=== PATIENT | female | born 1970 | race Caucasian/White ===

== ENCOUNTER 2017-04-01 06:06 | Inpatient (IN) | payer BC, MEDICARE, OTHER ==
--- NOTE | ~2017-04-01 | EGD ---
EGD REPORT [facility] [address] [address] NAME: PONCHO WATTS : 70 STATUS : ADM IN PAT#: [id number] AGE: 46 ADM/REG DATE : 04/01/17 MR#: [id number] REPORT SERV DATE: 04/03/17 DICTATED BY: MARVEL PELLETIER DATE: 04/03/17 REPORT STATUS : Draft TRANSCRIBED BY: [facility] DATE: 04/03/17 Pulmonology Patient Name: Poncho Watts Procedure Date: 04/03/2017 4:04 PM Date of : 1970 Attending MD: ALBAN PELLETIER MD Procedure Date No Time: 04/03/2017 Procedure: Bronchoscopy Indications: Left hemithorax opacification Providers: ALBAN PELLETIER MD Referring MD: SONIYA FIGUEROA MD Medicines: Lidocaine 2% 20 mL Complications: No immediate complications Procedure: Pre-Anesthesia Assessment: - A History and Physical has been performed. Patient meds and allergies have been reviewed. The risks and benefits of the procedure and the sedation options and risks were discussed with the patient. All questions were answered and informed consent was obtained. Patient identification and proposed procedure were verified prior to the procedure by the physician and the nurse in the pre-procedure area in the procedure room. Mental Status Examination: alert and oriented. Airway Examination: normal oropharyngeal airway. Respiratory Examination: decreased breathe sounds at left base, but otherwise clear. CV Examination: normal and RRR, no murmurs, no S3 or S4. ASA Grade Assessment: III - A patient with severe systemic disease. After reviewing the risks and benefits, the patient was deemed in satisfactory condition to undergo the procedure. The anesthesia plan was to use general anesthesia. Immediately prior to administration of medications, the patient was re-assessed for adequacy to receive sedatives. The heart rate, respiratory rate, oxygen saturations, blood pressure, adequacy of pulmonary ventilation, and response to care were monitored throughout the procedure. The physical status of the patient was re-assessed after the procedure. After obtaining informed consent, the BF [id number] was introduced through the mouth, via laryngeal mask airway and advanced to the tracheobronchial tree. The procedure was accomplished without difficulty. The patient tolerated the procedure well. Findings: The laryngeal mask airway is in normal position. The vocal cords move normally with breathing. The subglottic space is normal. The trachea is EGD REPORT [address] [address] NAME: PONCHO WATTS : [birth year] STATUS : ADM IN [facility]#: [id number] AGE: 46 ADM/REG DATE : 04/01/17 MR#: [id number] REPORT SERV DATE: 04/03/17 DICTATED BY: MARVEL PELLETIER DATE: 04/03/17 REPORT STATUS : Draft TRANSCRIBED BY: [employer] DATE: 04/03/17 of normal caliber. The barrera is sharp. The tracheobronchial tree was examined to at least the first subsegmental level. Bronchial mucosa and anatomy are normal; there are no endobronchial lesions. There was a small LLL mucus plug. Therapeutic aspiration was performed. Bronchoalveolar lavage was performed in the left lower lobe of the lung and sent for cell count, cytology, bacterial culture, viral smears \T\ culture, and fungal and AFB analysis. 180 mL of fluid were instilled. 20 mL were returned. The return was cellular. Impression: - Therapeutic aspiration was performed. - Bronchoalveolar lavage was performed. Recommendation: - Await test results. - Chest X-ray. Attending Participation: I personally performed the entire procedure. ALBAN PELLETIER MD 04/03/2017 4:58 PM This report has been signed electronically. Number of Addenda: 0 Note Initiated On: 04/03/2017 4:04 PM [address] [id number]
--- NOTE | ~2017-04-01 | HP ---
History And Physical [place] [address] [place]. [address] NAME: PONCHO WATTS : [birth year] STATUS : ADM IN [facility]#: [id number] AGE: 46 ADM/REG DATE : 04/01/17 MR#: [id number] REPORT SERV DATE: 04/01/17 DICTATED BY: JACQUELYN STRICKLAND DATE: 04/01/17 REPORT STATUS : Draft TRANSCRIBED BY: [employer] DATE: 04/01/17 DATE OF ADMISSION: 04/01/2017 CHIEF COMPLAINT: Congestion, coughing. HISTORY OF PRESENT ILLNESS: The patient is a very pleasant 46-year-old white female. She has a history of mental retardation, and spina bifida. She has pretty significant physical disability. She is only able to use her left arm. Uses a motorized wheelchair. She does feed herself, but she does not walk or ambulate. She has had a history of wounds on her sacrum and buttocks secondary to sitting in a chair all day. 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 She did not have any documented fevers per the special services supervisor and family. She did not have any diarrhea. No nausea, vomiting. No abdominal pain. She did not complain of any chest pain. There was some concern that she had a mouth droop; however, upon arrival to the ER this was not noted by the ER physician, the nurses, or myself. Mostly, she has had rhonchorous breath sounds and is appeared to be short of breath. She did receive a flu shot this year. She has had pneumonia in the past. She has a CLOCK AND WATCH ASSEMBLER shunt present. PAST MEDICAL HISTORY: 1. Spina bifida with subsequent hydrocephalus, multiple surgeries including CLOCK AND WATCH ASSEMBLER shunt. 2. Nephrotic syndrome. 3. CKD. 4. Acne. 5. Anemia. 6. Turner esophagus. 7. Allergies. 8. Gastritis. 9. GERD. 10.History UTIs. 11.Erosive esophagitis. 12.Hiatal hernia. 13.Insulin resistance. 14.Neurogenic bladder. 15.Obesity. 16.Osteoporosis. 17.EMILY, on CPAP, but no oxygen. 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 19.Seizure disorder. SOCIAL HISTORY: Nondrinker, nonsmoker. She lives in a [facility] with [employer]. Her father is present at bedside. She has a court-appointed guardian. FAMILY HISTORY: Positive for hypertension and also stroke. ALLERGIES: CONTRAST DYE, VANCOMYCIN, RED DYE, AND WATERMELON. [address] And [address]. [address] NAME: PONCHO WATTS : [birth year] STATUS : ADM IN [facility]#: [id number] AGE: 46 ADM/REG DATE : 04/01/17 MR#: [id number] REPORT SERV DATE: 04/01/17 DICTATED BY: JACQUELYN STRICKLAND DATE: 04/01/17 REPORT STATUS : Draft TRANSCRIBED BY: STEWART DATE: 04/01/17 PAST SURGICAL HISTORY: She has had a annie placed in her back, multiple surgeries for a CLOCK AND WATCH ASSEMBLER shunt, spina bifida, and a hip surgery on the right. HOME MEDICATIONS: Reviewed and attached. REVIEW OF SYSTEMS: Full 10-point review of systems obtained. Pertinent positives are mentioned in the HPI. PHYSICAL EXAMINATION: VITAL SIGNS: She is currently 98% on 2 L, BP is 121/73, temperature 97.2, pulse 88, respiratory rate in the 20s. HEENT: Normocephalic, atraumatic. NECK: Supple. HEART: Regular rate and rhythm. LUNGS: She has rhonchorous breath sounds throughout. ABDOMEN: Soft, nontender, nondistended. EXTREMITIES: Warm and dry. She has 2+ pitting edema at the feet. Her backside is examined and she did have any open sores. NEURO: She is alert. She answers simple questions easily. She moves her left arm normally. I do not see any facial droop. Her speech appears to be normal for her. LABORATORY AND X-RAY: White count 11.8, H and H 12.9 and 38.6, platelets are 217. Coags are normal. Lactate is 0.8. BNP is 27. Brain CT shows her shunt in placed. No acute infarct or bleed. Chest x-ray is clear. Procalcitonin is less than 0.05. Sodium 134, potassium 4.9, chloride 100, CO2 of 26, BUN creatinine 19 and 0.55, glucose is 85. Troponin is 0.02. Mag is 1.9. ASSESSMENT/PLAN: 1. Cough with shortness of breath and decreased and some component of hypoxemic respiratory failure likely secondary to ongoing pulmonary infection, although no obvious pneumonia on x-ray, she does have a white count. She has had a significant cough with rhonchorous breath sounds and sputum. I think this is the etiology of her change. I would recommend covering her for pneumonia. We will cover her with azithromycin and Rocephin. We will culture blood and sputum. Place her on some nebs as well as O2. We will suction her p.r.n. Turn her frequently and hopefully she will improve. 2. Question of altered mental status and facial droop. I do not appreciate a facial droop. None of the staff here appreciated anything on exam. Her CT is negative. I do not think she can have an MRI because of the shunt that she has in place that was placed in the 80s. We will simply watch her clinically. Her only real risk factor was for stroke was being on oral contraceptive in the past. I am trying to confirm now if she is taking any longer. 3. History of hypertension. She is on losartan, likely continue this. 4. History of chronic kidney disease, nephrotic syndrome, this could probably explain her lower extremity edema. 5. History of seizure disorder. Continue Tegretol and Depakote. 6. Spina bifida with resultant mental retardation and significant physical disabilities. History And Physical [address] [address] NAME: PONCHO WATTS : 70 STATUS : ADM IN [facility]#: [id number] AGE: 46 ADM/REG DATE : 04/01/17 MR#: [id number] REPORT SERV DATE: 04/01/17 DICTATED BY: JACQUELYN STRICKLAND DATE: 04/01/17 REPORT STATUS : Draft TRANSCRIBED BY: STEWART DATE: 04/01/17 7. Deep venous thrombosis prophylaxis, subcutaneous Lovenox. 8. History of stage IV decubitus ulcer and osteomyelitis of the left ischium. 9. Disposition pending above aforementioned plan and workup. STEFANY/STEWART Jacquelyn Strickland M.D. / [id number] CC: Jenn Cisneros D.O.
--- NOTE | ~2017-04-01 | CN ---
Consultation Report [facility] [address] [place]. [address] NAME: PONCHO WATTS : 70 STATUS : ADM IN [facility]#: [id number] AGE: 46 ADM/REG DATE : 04/01/17 MR#: [id number] REPORT SERV DATE: 04/02/17 DICTATED BY: DATE: REPORT STATUS : Draft TRANSCRIBED BY: MODL DATE: 04/02/17 NEUROLOGY CONSULTATION DATE OF CONSULTATION: 04/02/2017 REASON FOR CONSULT: Encephalopathy, concern for LEAD QA ANALYST shunt malfunction. HISTORY OF PRESENT ILLNESS: This is a 46-year-old female presented to [place] on 04/01/2017 secondary to apparent lethargy as well as decreased responsiveness. The patient usually is able to move left upper extremity. Also, the patient was noted to have bilateral paraplegia with the patient is mostly bed and wheelchair bound. The patient was noted to have lethargy on the morning of 04/01/2017. As a result, the patient was sent over from the living facility. The patient prior to hospitalization was not noted to have any fever or chill, but was noted to have an increased secretion as well as coughing and shortness of breath. The patient has not had any recent changes in medication. After hospital admission on the morning of 04/02/2017 the patient was noted to have febrile episodes, however, the patient's mental status today appeared to have improved. The patient was started on antibiotics since the hospital admission. PAST MEDICAL HISTORY: Significant for spina bifida as well as hydrocephalus with the patient noted to have a LEAD QA ANALYST shunt placement. The patient has had nephrotic syndrome, as well as chronic kidney disease, as well as a history of bilateral paraplegia; history of Turner's esophagus, anemia, gastritis, and gastroesophageal reflux disease; prior history of urinary tract infection as well as a history of neurogenic bladder, optic nerve atrophy, history of seizure disorder. It is unclear whether or not she is seen by any neurologist for seizure. FAMILY HISTORY: The patient was noted to have family history significant for hypertension as well as stroke. SOCIAL HISTORY: The patient was noted to have no tobacco, alcohol, or recreational drug usage. The patient lives in a prison. ALLERGIES: THE PATIENT NOTED TO HAVE ALLERGY TO CONTRAST DYE, VANCOMYCIN, RED DYE, WELL WATERMELON. MEDICATIONS: The patient's home medication, takes Tegretol as well as Depakote. Other home medication was reviewed. REVIEW OF SYSTEMS: Otherwise negative except for those mentioned in the HPI. PHYSICAL EXAMINATION: VITAL SIGNS: At the time of evaluation, the patient was noted to have vital signs with T-max was 100.6, heart rate of 73 to 102, respirations of 16 to 22, and blood pressure of 120 to Consultation Report [place] [id number] [facility] [place]. [address] NAME: PONCHO WATTS : 70 STATUS : ADM IN [facility]#: [id number] AGE: 46 ADM/REG DATE : 04/01/17 MR#: [id number] REPORT SERV DATE: 04/02/17 DICTATED BY: DATE: REPORT STATUS : Draft TRANSCRIBED BY: MODL DATE: 04/02/17 144 over 57 to 67. GENERAL: The patient is well developed, well nourished, in no acute distress. CARDIOVASCULAR: Tachycardic. No carotid bruits were auscultated. PULMONARY: Noted to have diffuse rhonchi at the time of evaluation. NEUROLOGIC EXAMINATION: The patient was noted to have neurological examination generally the patient is alert, oriented to self. The patient does not appear to be well oriented regarding place as well as year or month. The patient is able to follow some simple commands, otherwise with visual cues. Dysarthria was noted at the time of evaluation which appeared to be baseline. The patient is able to answer routine questions appropriately. Cranial nerves II through XII, pupils equal, round, and reactive to light. Horizontal eye movement was noted to stimulation. Blink to threat response was noted. Microcephaly was appreciated at time of evaluation. The patient was otherwise noted to have symmetrical facial expression and midline tongue. Apparent normal movement with the patient noted to have mild decreased hearing in bilateral ears. The patient does have increased muscle tone in the right upper extremity with the patient had difficulty moving the right upper extremity which according to family member has been baseline. The patient is able to move the left upper extremity against gravity. Unable to move bilateral lower extremity. The patient does have a 3+ reflexes bilaterally in upper and lower extremities at the time of evaluation. Cerebellar examination was not evaluated due to the patient's difficulty following complex commands with the gait not evaluated as the patient is normally wheelchair and bed bound. LABORATORY STUDIES: At the time of evaluation demonstrated a white blood cell count of 9.1, hemoglobin of 9.6, hematocrit of 29.2, and platelet count of 194. Chemistry panel, sodium 142, potassium 4.0, chloride 108, bicarb 26, BUN of 19, creatinine of 0.46 glucose of 116, calcium of 9.1. Serum Tegretol of 13.1 and Depakote level of 52.8 with procalcitonin level of less than 0.05. CT scan of the brain was reviewed. LEAD QA ANALYST shunt was in place and concern for possible mild ventriculomegaly compared to prior CT scan, otherwise no significant mass effect was noted at the time of evaluation previous left MCA distribution stroke with associated encephalomalacia was seen. IMPRESSION: Encephalopathy. With the patient's family reports improvement in confusion, concern for possible pneumonia and systemic illness related to encephalopathy. Continue antibiotic as per Pulmonary as well as hospitalist management, less likely secondary to LEAD QA ANALYST shunt malfunction, but we will have outpatient Neurosurgery followup for LEAD QA ANALYST shunt management. RECOMMENDATION: 1. Continue Tegretol and Depakote. 2. Antibiotics as per hospitalist and motor driver. 3. Serum TSH and free T4, vitamin B12, folate, ammonia level with morning labs. 4. Outpatient Neurosurgery followup. Consultation Report [address] [place]. [address] NAME: PONCHO WATTS : 70 STATUS : ADM IN [facility]#: [id number] AGE: 46 ADM/REG DATE : 04/01/17 MR#: [id number] REPORT SERV DATE: 04/02/17 DICTATED BY: DATE: REPORT STATUS : Draft TRANSCRIBED BY: STEWART DATE: 04/02/17 [facility]/STEWART Alex Poon MD / [id number] CC: Jenn Cisneros M.D.
--- NOTE | ~2017-04-01 | DS ---
Discharge Summary [facility] [address] [place]. [address] NAME: PONCHO WATTS : 70 STATUS : DIS IN PAT#: [id number] AGE: 46 ADM/REG DATE : 04/01/17 MR#: [id number] REPORT SERV DATE: 04/06/17 DICTATED BY: BJORN OSPINA DATE: 04/06/17 REPORT STATUS : Draft TRANSCRIBED BY: MODL DATE: 04/06/17 ADMISSION DATE: 04/01/2017 DISCHARGE DATE: 04/06/2017 DISCHARGE DIAGNOSES: 1. Hypoxic respiratory failure, mucous plugs, status post bronchoscopy on 04/03/2017. 2. Left pneumonia. 3. Acute encephalopathy, metabolic, resolved. 4. Obstructive sleep apnea, on constant positive airway pressure therapy. 5. , resolving, most recent 146. 6. Chronic stage IV sacral pressure ulcer, present on admission. 7. History of mental retardation and spina bifida. 8. History of hypertension. HISTORY OF PRESENT ILLNESS: This is a pleasant 46-year-old white female who presented with congestion and coughing. Please see initial H and P of Dr. Sydni Strickland. The patient was admitted to the Hospitalist Service for further evaluation and treatment. She was started on empiric antibiotic therapy. Lab work was ordered and followed. Cultures were obtained. CONSULTANTS DURING THIS ADMISSION: 1. Neurology, Dr. Lorena Poon. 2. Pulmonology; MICHAELA Breaux, and Dr. Cony Connor. PROCEDURES AND IMAGING DURING THIS ADMISSION: Initial CT scan of the brain showing prior GLASS CUT OFF TENDER shunt in place. No evidence of any acute infarct or bleed. 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 A mild increase in the prominence of the lateral ventricles on today's exam. A bronchoscopy that was performed as stated on 04/03/2017 where therapeutic aspiration was performed and bronchioalveolar lavage. HOSPITAL COURSE: The patient was continued on her IV antibiotics, bronchodilator therapy, and oxygen. Her mental status began to improve as Neurology saw the patient. Pulmonary saw the patient, and after discussion with the family and hospitalist, decided to pursue the above-described bronchoscopy, which was performed and she underwent this and recovered well afterwards. Her symptoms slowly began to resolve, her oxygen was able to be weaned, her chest x-rays improved, she continued using her CPAP therapy. Speech Therapy also saw the patient and did not recommend any further swallow evaluation as she had no overt signs of aspiration. She completed her antibiotic course on 04/05/2017, and was felt safe for [facility], given her overall symptomatic improvement. DISCHARGE MEDICINES: Aspirin 81 mg daily, Tegretol 300 mg twice a day and 200 mg at noon, [place] and vitamin D 500 mg twice a day, multivitamin tablet one daily, Depakote ER 1500 mg in the evening, Zantac 300 mg at bedtime, Flonase nasal spray p.r.n. to each naris, María 180 mg daily, losartan 100 mg daily, Reglan 10 mg before meals, Prilosec 40 mg daily, MiraLAX one packet daily, sodium bicarbonate 650 mg twice a day, Fosamax 70 mg every seven days, cranberry extract daily, miconazole 2% ointment applied twice a day p.r.n. for abdominal folds, Tri-Previfem tablet, and saline nasal spray p.r.n. Discharge Summary [address] [address] NAME: PONCHO WATTS : 70 STATUS : DIS IN PAT#: [id number] AGE: 46 ADM/REG DATE : 04/01/17 MR#: [id number] REPORT SERV DATE: 04/06/17 DICTATED BY: BJORN OSPINA DATE: 04/06/17 REPORT STATUS : Draft TRANSCRIBED BY: STEWART DATE: 04/06/17 [facility]/STEWART Bjorn Ospina NP / [id number] CC: Jenn Cisneros M.D.
--- NOTE | ~2017-04-01 | DS ---
Discharge Summary [place] [id number] [facility] [place]. [address] NAME: PONCHO WATTS : 70 STATUS : DIS IN PAT#: [id number] AGE: 46 ADM/REG DATE : 04/01/17 MR#: [id number] REPORT SERV DATE: 04/06/17 DICTATED BY: BJORN OSPINA DATE: 04/06/17 REPORT STATUS : Draft TRANSCRIBED BY: MODL DATE: 04/06/17 ADMISSION DATE: 04/01/2017 DISCHARGE DATE: 04/06/2017 NO DICTATION [facility]/STEWART Bjorn Ospina NP / [id number] CC: Jenn Cisneros M.D.
--- NOTE | ~2017-04-01 | CN ---
Consultation Report [facility] [address] [place]. [address] NAME: PONCHO WATTS : 70 STATUS : ADM IN PAT#: [id number] AGE: 46 ADM/REG DATE : 04/01/17 MR#: [id number] REPORT SERV DATE: 04/02/17 DICTATED BY: CHOLO DALE DATE: 04/02/17 REPORT STATUS : Draft TRANSCRIBED BY: MODL DATE: 04/02/17 CONSULT NOTE DATE OF CONSULTATION: 04/02/2017 CHIEF COMPLAINT: Worsening hypoxemia in a patient with an opacified left hemithorax. HISTORY OF PRESENT ILLNESS: Mrs. Poncho Watts is a 46-year-old white female with a past medical history significant for spina bifida, mental retardation, and epilepsy, who presents to [facility] Emergency Room with complaints of difficulty breathing. It should be noted that Mrs. Watts has not been hospitalized recently and has done fairly well in the facility in which she currently resides up until recently. Mrs. Watts is not currently followed by a maintenance shop technician. She is not usually on supplemental oxygen. She takes no breathing medications. She does have known obstructive sleep apnea, compliant with CPAP therapy. She denies previous smoking history. She is unable to quantify her exercise tolerance today. As previously mentioned, Mrs. Watts does have a degree of mental retardation and much of the following information was garnered from her as well as her mother, who I spoke with on the phone. Again, the patient does have known spina bifida and mental retardation and stays at [facility]. By report she had worsening chest congestion and cough as well as some associated lethargy. This eventually prompted her presentation to [facility] Emergency Room. Upon arrival, she was found to have a systolic blood pressure of 172, she was afebrile at this time. She had an oxygen saturation of 93% on 4 L. Initial blood work revealed a white blood cell count of 11,800. Creatinine was 0.5. Chest x-ray was not impressive as her initial presentation. Because of her change in mental status, she did undergo a CT of the brain, which did not demonstrate any acute infarct or bleed. She does have a known shunt noted on this scan. The patient was placed on community-acquired antibiotic coverage. She did have a followup chest x-ray today, which revealed opacification of the left chest. For the aforementioned reasons, she has been referred to the Pulmonary Service for further assessment. Currently, Mrs. Watts is awake and alert. She answers questions. Her caregiver is currently at bedside. She is demonstrating a strong productive cough. She denies any pain in her chest or coughing up any blood. The patient currently denies any murmurs, angina, or palpitations. She does have some mild edema. In regard to constitutional symptoms, she has had fever. She currently denies any nausea, vomiting, or abdominal pain. PAST MEDICAL HISTORY: Consultation Report [address] [id number] NAME: PONCHO WATTS : 70 STATUS : ADM IN [facility]#: [id number] AGE: 46 ADM/REG DATE : 04/01/17 MR#: [id number] REPORT SERV DATE: 04/02/17 DICTATED BY: CHOLO DALE DATE: 04/02/17 REPORT STATUS : Draft TRANSCRIBED BY: STEWART DATE: 04/02/17 1. Spina bifida. 2. Nephrotic syndrome. 3. Anemia. 4. Turner's esophagus. 5. Gastroesophageal reflux disease. 6. Hiatal hernia. 7. Obesity. 8. Obstructive sleep apnea, on CPAP. 9. Seizure disorder. PAST SURGICAL HISTORY: DUMPER [employer]ER shunt placement. FAMILY HISTORY: There is no family history of lung disease. SOCIAL HISTORY: The patient is not . She has no children. She does reside at the care facility. TOBACCO/ALCOHOL: As previously mentioned, the patient describes herself as a never smoker. MEDICATIONS: Alendronate 70 mg, Tegretol 100 mg, carbamazepine 100 mg, Depakote 500 mg, fexofenadine 180 mg, losartan 100 mg, Reglan 10 mg, omeprazole 40 mg, ranitidine 300 mg. ALLERGIES: THE PATIENT HAS KNOWN ALLERGIES TO CONTRAST, VANCOMYCIN, AND RED DYE. REVIEW OF SYSTEMS: Complete review of systems was performed with the pertinent positives and negatives contained within the body of the HPI. PHYSICAL EXAMINATION: VITAL SIGNS: Blood pressure is 124/68, heart rate 86, T-max is 100.6, respiratory rate is 16, SpO2 is 88% on 2 L nasal cannula. GENERAL: Mrs Poncho Watts is a 46-year-old developmentally disabled white female, who is not currently exhibiting any signs of acute distress. SKIN: Skin with appropriate texture and turgor. No rashes, lesions, or ulcers. She does have report of wounds on her buttocks. HEENT: Head, skull is normocephalic, atraumatic. Facies are symmetric. Eyes, sclerae anicteric. Ears, auricles and tragus without pain to palpation. There is pitting noting at above the right auricle. Nose, bilateral nasal patency. Throat, Mallampati class 3 to 4. NECK: Redundant tissue noted. No lymphadenopathy. THORAX/LUNGS: Absent breath sounds on the left. Coarse rhonchi through the remaining lung snow. CARDIOVASCULAR: Regular rate and rhythm. ABDOMEN: Soft. PERIPHERAL VASCULAR: Very mild nonpitting edema. MUSCULOSKELETAL: Small hands. Consultation Report [address] [place]. [address] NAME: PONCHO WATTS : 70 STATUS : ADM IN [facility]#: [id number] AGE: 46 ADM/REG DATE : 04/01/17 MR#: [id number] REPORT SERV DATE: 04/02/17 DICTATED BY: CHOLO DALE DATE: 04/02/17 REPORT STATUS : Draft TRANSCRIBED BY: STEWART DATE: 04/02/17 NEUROLOGIC: Good muscle bulk and tone bilaterally. Strength not assessed. PSYCHIATRIC: The patient has limited cognitive ability. ACCESSORY DATA: Reveals a white blood cell count of 9100, hemoglobin and hematocrit is 9.6 and 29.3. Procalcitonin is 0.05. Glucose is 116. Chest x-ray reveals opacification of the left hemithorax. IMPRESSION: 1. Acute hypoxemic respiratory failure. 2. Opacified left hemithorax. 3. Pneumonia-possible aspiration component. 4. Obstructive sleep apnea with CPAP compliance. 5. Dysphagia. PLAN: 1. At this time, the patient's family wishes her to be a full code. We will place her on supplemental oxygen and titrate as appropriate. 2. In regard to the patient's opacified left hemithorax, we will try to maximize her pulmonary toilet with the understanding that she will have difficulty participating. She will likely require therapeutic bronchoscopy for her mucous plugging. We have discussed this with the family and they are willing to proceed if our conservative treatments do not resolve her opacified left hemithorax. 3. In regard to the patient's pneumonia, she is on community-acquired coverage with improvement in her white count. She does also have a negative procalcitonin. We would have a low threshold to increase to full HCAP coverage, although her allergy to vancomycin has been noted. We will follow her closely with further recommendations. 4. In regard to the patient's obstructive sleep apnea, the family is apparently bringing her home unit in for use at her for sleep. 5. The patient does have some reports of difficulty swallowing. We will check a swallow evaluation prior to her discharge home. The aforementioned impression and plan has been discussed with Dr. Connor, who will follow further recommendations. We thank you for this consult and look forward to participating in the care of Mrs. Poncho Watts. GBS/MODL Cholo Dale PA-C / [id number] Consultation Report [address] [address] NAME: PONCHO WATTS : 70 STATUS : ADM IN PAT#: [id number] AGE: 46 ADM/REG DATE : 04/01/17 MR#: [id number] REPORT SERV DATE: 04/02/17 DICTATED BY: CHOLO DALE DATE: 04/02/17 REPORT STATUS : Draft TRANSCRIBED BY: STEWART DATE: 04/02/17 CC: Jenn Cisneros M.D.
[~2017-04-01 06:06] MED LIST: 8 HOUR650 MG PO; ALLEGRA180 PO; ASAB PO; BENZOYL PEROXIDE TOP; COZAAR100 MG PO; CRANBERRY PO; CRANBERRY1 TAB PO; DEPAKOTEER PO; FLONASE NAS; FOSAMAX70 MG PO; MIRALAXPKT PO; MULTIPLE VIT PO; MULTIVITAMI1 PO; NASONEX NAS; OCEAN NAS; OS500+D PO; PRILOSEC40 MG PO; REG PO; SOD CHLORIDE1 G1 PO; SODBICAR10 PO; TEGRETOL100 MG PO; TRI-PREVIFEM PO; YASMIN 281 TAB PO; ZANTAC300 MG PO; ZITH250 PO
[2017-04-01 06:33] LABS: BASOPHILS 0.1 %; BASOPHILS ABSOLUTE 0.01 10/3/uL (0.0-0.16); EOSINOPHILS 0 %; HEMATOCRIT 38.6 % (36.0-48.0); HEMOGLOBIN 12.9 g/dL (12.0-16.0); IMMATURE GRANULOCYTES 0.2 %; IMMATURE GRANULOCYTES ABSOLUTE 0.02 10/3/uL (0.0-0.11); LYMPHOCYTES 6.8 %; MANUAL DIFF NO %; MEAN CORPUS HGB CONC 33.4 g/dL (32.0-36.0); MEAN CORPUSCULAR VOLUME 86.7 fL (80-100); MEAN PLATELET VOLUME 11.2 fL (9.2-13.0); MONOCYTES 10.3 %; MONOCYTES ABSOLUTE 1.21 10/3/uL (0.21-1.20); NEUTROPHILS 82.6 %; NEUTROPHILS ABSOLUTE 9.74 10/3/uL (2.02-8.40); PLATELET COUNT 217 10/3/uL (150-400); RBC DISTRIBUTION WIDTH 15.1 % (12.0-16.0); RED CELL COUNT 4.45 10/6/uL (4.0-5.6); WHITE BLOOD CELLS 11.8 10/3/uL (4.5-10.5)
[2017-04-01 06:45] LABS: PARTIAL THROMBO TIME 34.1 SEC (22.5-37.2); PROTIME (NOT ORD) 13.1 SEC (12.0-14.5)
[2017-04-01 06:52] LABS: BUN (BLOOD UREA NITROGEN) 19 MG/DL (6-23); CHEST PAIN PROFILE TAT 0 Hrs 25 Mins; CHLORIDE, SERUM 100 MMOL/L (96-112); CO2 (CARBON DIOXIDE) 26 MMOL/L (24-34); CREATININE 0.55 MG/DL (0.55-1.02); GFR AFRICAN AMERICAN 130 ML/MIN (>=60); GFR NON AFRICAN AMERICAN 112 ML/MIN (>=60); POTASSIUM, SERUM 4.9 MMOL/L (3.5-5.3); SODIUM, SERUM 134 MMOL/L (135-148); TROPONIN I <0.02 NG/ML (<0.05)
[2017-04-01 06:53] LABS: CALCIUM, SERUM 9.9 MG/DL (8.5-10.4); GLUCOSE, SERUM 85 MG/DL (60-99); LACTATE 0.8 MMOL/L (0.3-2.4)
[2017-04-01 07:35] LABS: PROCALCITONIN <0.05 ng/mL (<0.5)
[2017-04-01 08:28] LABS: TEGRETOL (CARBAMAZEPINE) 13.1 MCG/ML (4.0-10.0)
[2017-04-01 08:30] LABS: DEPAKENE (VALPROIC ACID) 52.8 MCG/ML (50.0-100.0)
[2017-04-01] MEDS ORDERED: FOSAMAX70 MG PO (08:42)
[2017-04-01] MEDS ORDERED: BENZOYL PEROXIDE TOP (08:42)
[2017-04-01] MEDS ORDERED: REG PO (08:43)
[2017-04-01] MEDS ORDERED: ALLEGRA180 PO (08:43)
[2017-04-01] MEDS ORDERED: COZAAR100 MG PO (08:44)
[2017-04-01] MEDS ORDERED: FLONASE NAS (08:44)
[2017-04-01] MEDS ORDERED: PRILOSEC40 MG PO (08:44)
[2017-04-01] MEDS ORDERED: OS500+D PO (08:45)
[2017-04-01] MEDS ORDERED: TEGRETOL100 MG PO ×2 (08:45→08:46)
[2017-04-01] MEDS ORDERED: SODBICAR10 PO (08:45)
[2017-04-01] MEDS ORDERED: CRANBERRY500 MG PO (08:47)
[2017-04-01] MEDS ORDERED: ASAB PO (08:47)
[2017-04-01] MEDS ORDERED: DEPAKOTEER PO (08:47)
[2017-04-01] MEDS ORDERED: CENTRUM PO (08:48)
[2017-04-01] MEDS ORDERED: ZANTAC300 MG PO (08:49)
[2017-04-01] MEDS ORDERED: MIRALAX POWDER1 PKT PO ×2 (08:52→08:59)
[2017-04-01] MEDS ORDERED: TRI-PREVIFEM PO (08:53)
[2017-04-01] MEDS ORDERED: MICONAZOLE 2% TOP (08:57)
[2017-04-01] MEDS ORDERED: OCEAN NAS (08:58)
[2017-04-01 16:56] LABS: INFLUENZA A SCREEN NEGATIVE (NEGATIVE); INFLUENZA B SCREEN NEGATIVE (NEGATIVE)
[2017-04-02 06:34] LABS: BASOPHILS 0.1 %; BASOPHILS ABSOLUTE 0.01 10/3/uL (0.0-0.16); EOSINOPHILS 0 %; IMMATURE GRANULOCYTES 0.1 %; IMMATURE GRANULOCYTES ABSOLUTE 0.01 10/3/uL (0.0-0.11); LYMPHOCYTES 13.7 %; LYMPHOCYTES ABSOLUTE 1.24 10/3/uL (0.67-4.30); MEAN CORPUS HGB CONC 32.9 g/dL (32.0-36.0); MEAN CORPUSCULAR HEMOGLOB 28.7 pg (26.0-34.0); MEAN CORPUSCULAR VOLUME 87.4 fL (80-100); MEAN PLATELET VOLUME 11.2 fL (9.2-13.0); MONOCYTES 8.5 %; MONOCYTES ABSOLUTE 0.77 10/3/uL (0.21-1.20); NEUTROPHILS 77.6 %; NEUTROPHILS ABSOLUTE 7.02 10/3/uL (2.02-8.40); PLATELET COUNT 194 10/3/uL (150-400); RBC DISTRIBUTION WIDTH 15.7 % (12.0-16.0); WHITE BLOOD CELLS 9.1 10/3/uL (4.5-10.5)
[2017-04-02 06:39] LABS: HEMATOCRIT 29.2 % (36.0-48.0); HEMOGLOBIN 9.6 g/dL (12.0-16.0); RED CELL COUNT 3.34 10/6/uL (4.0-5.6)
[2017-04-02 06:40] LABS: MANUAL DIFF NO %
[2017-04-02 06:47] LABS: BUN (BLOOD UREA NITROGEN) 19 MG/DL (6-23); CALCIUM, SERUM 9.1 MG/DL (8.5-10.4); CHLORIDE, SERUM 108 MMOL/L (96-112); CO2 (CARBON DIOXIDE) 26 MMOL/L (24-34); CREATININE 0.46 MG/DL (0.55-1.02); GFR AFRICAN AMERICAN 138 ML/MIN (>=60); GFR NON AFRICAN AMERICAN 119 ML/MIN (>=60); GLUCOSE, SERUM 116 MG/DL (60-99); SODIUM, SERUM 142 MMOL/L (135-148)
[2017-04-03 05:04] LABS: BASOPHILS 0.1 %; BASOPHILS ABSOLUTE 0.01 10/3/uL (0.0-0.16); EOSINOPHILS 0.1 %; EOSINOPHILS ABSOLUTE 0.01 10/3/uL (0.0-0.53); HEMATOCRIT 27.7 % (36.0-48.0); IMMATURE GRANULOCYTES 0.1 %; IMMATURE GRANULOCYTES ABSOLUTE 0.01 10/3/uL (0.0-0.11); LYMPHOCYTES 35.1 %; LYMPHOCYTES ABSOLUTE 2.46 10/3/uL (0.67-4.30); MEAN CORPUS HGB CONC 32.5 g/dL (32.0-36.0); MEAN CORPUSCULAR HEMOGLOB 28.7 pg (26.0-34.0); MEAN CORPUSCULAR VOLUME 88.2 fL (80-100); MEAN PLATELET VOLUME 11.1 fL (9.2-13.0); MONOCYTES ABSOLUTE 0.98 10/3/uL (0.21-1.20); NEUTROPHILS 50.6 %; NEUTROPHILS ABSOLUTE 3.53 10/3/uL (2.02-8.40); PLATELET COUNT 195 10/3/uL (150-400); RBC DISTRIBUTION WIDTH 16.2 % (12.0-16.0); RED CELL COUNT 3.14 10/6/uL (4.0-5.6)
[2017-04-03 05:08] LABS: MANUAL DIFF NO %
[2017-04-03 05:58] LABS: FREE T4 1.28 NG/DL (0.76-1.46)
[2017-04-03 05:59] LABS: FOLATE 26.1 NG/ML (>5.2); ULTRASENSITIVE TSH 3.06 MCIU/ML (0.358-3.740)
[2017-04-03 18:54] LABS: BD FL LYMPH (NOT ORD) 6 %; BD FL SOURCE (NOT ORD) BAL-LUL; BF BASO (NOT OF) 0 %; BF LARGE MONONUCLEAR 24 %; BF TOTAL CELL CT (NOT ORD 1297 /MM3; BODY FLUID EOS (NOT ORD) 0 %; BODY FLUID RBC (NOT ORD) 4000 /MM3; BODY FLUID SEG (NOT ORD) 70 %
[2017-04-04 06:04] LABS: BASOPHILS 0.3 %; BASOPHILS ABSOLUTE 0.02 10/3/uL (0.0-0.16); EOSINOPHILS 0.5 %; EOSINOPHILS ABSOLUTE 0.03 10/3/uL (0.0-0.53); HEMATOCRIT 26.1 % (36.0-48.0); HEMOGLOBIN 8.5 g/dL (12.0-16.0); IMMATURE GRANULOCYTES 0.2 %; IMMATURE GRANULOCYTES ABSOLUTE 0.01 10/3/uL (0.0-0.11); LYMPHOCYTES 36.9 %; LYMPHOCYTES ABSOLUTE 2.44 10/3/uL (0.67-4.30); MANUAL DIFF NO %; MEAN CORPUS HGB CONC 32.6 g/dL (32.0-36.0); MEAN CORPUSCULAR HEMOGLOB 28.8 pg (26.0-34.0); MEAN CORPUSCULAR VOLUME 88.5 fL (80-100); MEAN PLATELET VOLUME 10.7 fL (9.2-13.0); MONOCYTES 12.1 %; NEUTROPHILS ABSOLUTE 3.31 10/3/uL (2.02-8.40); PLATELET COUNT 192 10/3/uL (150-400); RBC DISTRIBUTION WIDTH 15.9 % (12.0-16.0); RED CELL COUNT 2.95 10/6/uL (4.0-5.6); WHITE BLOOD CELLS 6.6 10/3/uL (4.5-10.5)
[2017-04-04 06:16] LABS: BUN (BLOOD UREA NITROGEN) 14 MG/DL (6-23); CALCIUM, SERUM 8.6 MG/DL (8.5-10.4); CHLORIDE, SERUM 110 MMOL/L (96-112); CO2 (CARBON DIOXIDE) 28 MMOL/L (24-34); CREATININE 0.37 MG/DL (0.55-1.02); GFR AFRICAN AMERICAN 149 ML/MIN (>=60); GFR NON AFRICAN AMERICAN 128 ML/MIN (>=60); GLUCOSE, SERUM 90 MG/DL (60-99); PHOSPHORUS, SERUM 3.5 MG/DL (2.5-4.5); POTASSIUM, SERUM 3.4 MMOL/L (3.5-5.3); SODIUM, SERUM 146 MMOL/L (135-148)
[2017-04-05 05:19] LABS: BASOPHILS 0.2 %; BASOPHILS ABSOLUTE 0.01 10/3/uL (0.0-0.16); EOSINOPHILS 0.7 %; EOSINOPHILS ABSOLUTE 0.04 10/3/uL (0.0-0.53); HEMATOCRIT 26.9 % (36.0-48.0); HEMOGLOBIN 8.7 g/dL (12.0-16.0); IMMATURE GRANULOCYTES 0.4 %; IMMATURE GRANULOCYTES ABSOLUTE 0.02 10/3/uL (0.0-0.11); LYMPHOCYTES 40.4 %; LYMPHOCYTES ABSOLUTE 2.19 10/3/uL (0.67-4.30); MANUAL DIFF NO %; MEAN CORPUS HGB CONC 32.3 g/dL (32.0-36.0); MEAN CORPUSCULAR HEMOGLOB 28.7 pg (26.0-34.0); MEAN CORPUSCULAR VOLUME 88.8 fL (80-100); MEAN PLATELET VOLUME 10.9 fL (9.2-13.0); MONOCYTES ABSOLUTE 0.92 10/3/uL (0.21-1.20); NEUTROPHILS 41.3 %; NEUTROPHILS ABSOLUTE 2.24 10/3/uL (2.02-8.40); PLATELET COUNT 223 10/3/uL (150-400); RBC DISTRIBUTION WIDTH 16.4 % (12.0-16.0); RED CELL COUNT 3.03 10/6/uL (4.0-5.6); WHITE BLOOD CELLS 5.4 10/3/uL (4.5-10.5)
[2017-04-05 05:31] LABS: ALBUMIN 2.1 G/DL (3.5-5.0); BUN (BLOOD UREA NITROGEN) 16 MG/DL (6-23); CALCIUM, SERUM 8.4 MG/DL (8.5-10.4); CHLORIDE, SERUM 113 MMOL/L (96-112); CO2 (CARBON DIOXIDE) 29 MMOL/L (24-34); CREATININE 0.46 MG/DL (0.55-1.02); GFR AFRICAN AMERICAN 138 ML/MIN (>=60); GFR NON AFRICAN AMERICAN 119 ML/MIN (>=60); GLUCOSE, SERUM 89 MG/DL (60-99); PHOSPHORUS, SERUM 3.3 MG/DL (2.5-4.5); SODIUM, SERUM 149 MMOL/L (135-148)
[2017-04-06 10:53] LABS: BUN (BLOOD UREA NITROGEN) 15 MG/DL (6-23); CALCIUM, SERUM 8.8 MG/DL (8.5-10.4); CHLORIDE, SERUM 110 MMOL/L (96-112); CO2 (CARBON DIOXIDE) 33 MMOL/L (24-34); CREATININE 0.49 MG/DL (0.55-1.02); GFR AFRICAN AMERICAN 135 ML/MIN (>=60); GFR NON AFRICAN AMERICAN 117 ML/MIN (>=60); POTASSIUM, SERUM 3.5 MMOL/L (3.5-5.3); SODIUM, SERUM 146 MMOL/L (135-148)
[2017-04-06 10:54] LABS: GLUCOSE, SERUM 109 MG/DL (60-99)
[2017-04-07 20:35] LABS: THIAMINE 15.7 nmol/L (()); THIAMINE MONOPHOSPHATE 2.9 nmol/L (())
== END 2017-04-06 15:49 | disposition home or self-care (01) | DRG 166 ==
LOC: ER 06:06 → CDU1 08:51 → 2SO 09:37
PROVIDERS: Internal Medicine; Psychiatry & Neurology Neurology; Specialist
PROC: 0BCB8ZZ Extirpation of Matter from Left Lower Lobe Bronchus, Via Natural or Artificial Opening Endoscopic (ICD-10-PCS; 2017-04-03)
PROC: 0B9J8ZX Drainage of Left Lower Lung Lobe, Via Natural or Artificial Opening Endoscopic, Diagnostic (ICD-10-PCS; principal; 2017-04-03 14:30)
DX: J96.21 Acute and chronic respiratory failure with hypoxia (principal); G93.41 Metabolic encephalopathy; J18.9 Pneumonia, unspecified organism; L89.154 Pressure ulcer of sacral region, stage 4; G95.89 Other specified diseases of spinal cord; E87.0 Hyperosmolality and hypernatremia; T17.890A Other foreign object in other parts of respiratory tract causing asphyxiation, initial encounter; E87.1 Hypo-osmolality and hyponatremia; Q05.4 Unspecified spina bifida with hydrocephalus; N04.9 Nephrotic syndrome with unspecified morphologic changes; G82.20 Paraplegia, unspecified; N18.4 Chronic kidney disease, stage 4 (severe); R13.10 Dysphagia, unspecified; I12.9 Hypertensive chronic kidney disease with stage 1 through stage 4 chronic kidney disease, or unspecified chronic kidney disease; G40.909 Epilepsy, unspecified, not intractable, without status epilepticus; L70.9 Acne, unspecified; D64.9 Anemia, unspecified; K21.9 Gastro-esophageal reflux disease without esophagitis; K44.9 Diaphragmatic hernia without obstruction or gangrene; E88.81 Metabolic syndrome and other insulin resistance; K22.70 Barrett's esophagus without dysplasia; E66.9 Obesity, unspecified; M81.0 Age-related osteoporosis without current pathological fracture; F78 Other intellectual disabilities; G47.33 Obstructive sleep apnea (adult) (pediatric); I69.30 Unspecified sequelae of cerebral infarction; Z91.041 Radiographic dye allergy status; Z88.8 Allergy status to other drugs, medicaments and biological substances; Z91.018 Allergy to other foods; Z82.49 Family history of ischemic heart disease and other diseases of the circulatory system; Z98.890 Other specified postprocedural states; M85.88 Other specified disorders of bone density and structure, other site
CPT/HCPCS: 70450; 71010; 77080; 80048; 80069; 80156; 80164; 82140; 82607; 82746; 83605; 83735; 83880; 84145; 84425; 84439; 84443; 84484; 85025; 85610; 85730; 87015; 87040; 87070; 87102; 87116; 87205; 87804; 88112; 89051; 92610-GN; 93005; 94640; 94667; 94668; 96374; 99285; A9270-GY; G8996-CI-GN; G8997-CI-GN; G8998-CI-GN; J0360; J0456; J2250; J3010